=== PATIENT | male | born 1975 | race Caucasian/White ===

== ENCOUNTER 2021-05-15 17:55 | Outpatient (CLI) | payer MEDICAID ==
[~2021-05-15 17:55] MED LIST: CEPH500C3 PO
[2021-05-15 20:07] VITALS: BP 104/69
[2021-05-15 22:15] VITALS: BP 104/69
[2021-05-15] MEDS ORDERED: RisperiDONE 1 MG TABLET PO ONE (22:15)
[2021-05-15 23:11] LABS: GLUCOMETER DEV NAME(LOC) POC.BV
[2021-05-16] MEDS ORDERED: NICOTINE 14 MG/24 HOUR PATCH TD ONE (08:30)
[2021-05-16 08:35] VITALS: BP 103/64
[2021-05-16] MEDS ORDERED: RisperiDONE 1 MG TABLET PO SCH (09:00)
== END 2021-05-16 16:20 | disposition admitted as inpatient to this hospital (09) ==
LOC: CSU 17:55
PROVIDERS: ATTEND Psychiatry & Neurology Psychiatry
DX: F20.9 Schizophrenia, unspecified (principal)
CPT/HCPCS: 90792; Z7610

== ENCOUNTER 2021-05-16 10:38 | Inpatient (IN) | payer MEDICAID ==
[~2021-05-16] VITALS: Ht 170.2 cm; Wt 78.7 kg
[2021-05-16] MEDS ORDERED: ZOLPIDEM TARTRATE 10 MG TABLET PO PRN (16:45)
[2021-05-16] MEDS ORDERED: INFLUENZA VIRUS VACCINE QVS 2021-22 (6MO+)/PF 60 MCG/0.5 ML SYRINGE IM. ONE (17:00)
[2021-05-16] MEDS: HALOPERIDOL 5 MG TABLET PO PRN (17:38)
[2021-05-16] MEDS: LORazepam 2 MG TABLET PO PRN (17:38)
[2021-05-16 17:54] VITALS: BP 132/86
[2021-05-16 17:56] VITALS: BP 132/86
[2021-05-17 05:10] VITALS: BP 130/84
[2021-05-17] MEDS ORDERED: MAGNESIUM HYDROXIDE SUSPENSION 30 ML UDCUP PO PRN (06:00)
[2021-05-17] MEDS ORDERED: LOPERAMIDE HCL 2 MG CAPSULE PO PRN (06:00)
[2021-05-17] MEDS ORDERED: MAG HYDROX/AL HYDROX/SIMETH ES 30 ML SUSPENSION UDCUP PO PRN (06:00)
[2021-05-17] MEDS ORDERED: DOCUSATE SODIUM 100 MG CAPSULE PO PRN (06:00)
[2021-05-17] MEDS ORDERED: OMEPRAZOLE 20 MG CAPSULE PO PRN (06:00)
[2021-05-17] MEDS ORDERED: ACETAMINOPHEN 325 MG TABLET PO PRN (06:00)
[2021-05-17] MEDS ORDERED: BACITRACIN 28 GM OINTMENT TP PRN (06:00)
[2021-05-17] MEDS ORDERED: ALBUTEROL SULFATE HFA 90 MCG/PUFF 8 GM INHALER IH PRN (06:00)
[2021-05-17] MEDS ORDERED: CloNIDine HCL 0.1 MG TABLET PO PRN (06:00)
[2021-05-17] MEDS ORDERED: BENZOCAINE/MENTHOL LOZENGE PO PRN (06:00)
[2021-05-17] MEDS ORDERED: ONDANSETRON HCL 4 MG TABLET PO PRN (06:00)
[2021-05-17] MEDS ORDERED: IBUPROFEN 600 MG TABLET PO PRN (06:00)
[2021-05-17] MEDS ORDERED: PETROLATUM,WHITE 28 GM JELLY TP PRN (06:00)
[2021-05-17 07:42] LABS: BASOPHILS % (AUTO) 1.1 % (0.0-2.0); EOSINOPHILS % (AUTO) 4.1 % (1.0-6.0); HEMATOCRIT 39.1 % (41-53); HEMOGLOBIN 13.2 g/dL (13.5-17.5); LYMPHOCYTES # (AUTO) 2.9 K/uL (1.0-4.8); LYMPHOCYTES % (AUTO) 39.1 % (22.0-44.0); MEAN CORPUSCULAR HEMOGLOBIN 31.3 pg (26.0-34.0); MEAN CORPUSCULAR HGB CONC 33.8 G/dL (31.0-37.0); MEAN CORPUSCULAR VOLUME 93 fL (80-100); MONOCYTES # (AUTO) 0.5 K/uL (0.1-1.0); MONOCYTES % (AUTO) 6.5 % (2.0-9.0); NEUTROPHILS # (AUTO) 3.6 K/uL (1.8-7.7); NEUTROPHILS % (AUTO) 49.2 % (40.0-70.0); PLATELET COUNT (AUTO) 301 K/uL (150-450); RED BLOOD CELL COUNT(AUTO) 4.22 MIL/uL (4.50-5.90); RED CELL DISTRIBUTION WIDTH 12.3 % (11.5-14.5)
[2021-05-17 07:54] LABS: HEMOGLOBIN A1C 5.8 % (3.8-5.6)
[2021-05-17 08:00] LABS: ALANINE AMINOTRANSFERASE 20 U/L (12-78); ALBUMIN 3.7 g/dL (3.4-5.0); ALKALINE PHOSPHATASE 63 U/L (46-116); ANION GAP 9 mmol/L (8-16); ASPARTATE AMINOTRANSFERASE 14 U/L (15-37); BILIRUBIN,TOTAL 0.3 mg/dL (0.1-1.0); CALCIUM, TOTAL 8.9 mg/dL (8.8-10.5); CARBON DIOXIDE 26 mmol/L (22-29); CHLORIDE 105 mmol/L (98-107); CHOL/HDL RATIO 5.2 (4.2-7.3); CHOLESTEROL 199 mg/dL (131-200); CREATININE 0.94 mg/dL (0.60-1.30); GLOMERULAR FILTR. RATE CALC > 60 mL/min (>60); GLUCOSE,RANDOM 94 mg/dL (70-110); HDL CHOLESTEROL 38 mg/dL (40-60); LDL CHOL (CALC.) 146 mg/dL (0-130); POTASSIUM 3.9 mmol/L (3.5-5.1); SODIUM SERUM 140 mmol/L (136-145); TOTAL PROTEIN, SERUM 7.1 g/dL (6.4-8.2); TRIGLYCERIDES 73 mg/dL (15-150); UREA NITROGEN, BLOOD 9 mg/dL (7-18)
[2021-05-17 08:14] VITALS: BP 108/60
[2021-05-17 08:41] LABS: FREE T4 (FREE THYROXINE) 1.24 ng/dL (0.76-1.46); THYROID STIMULATING HORMONE 0.54 uIU/mL (0.36-3.74)
[2021-05-17] MEDS: LORazepam 2 MG TABLET PO PRN ×2 (11:15→16:51)
[2021-05-17] MEDS: HALOPERIDOL 5 MG TABLET PO PRN ×2 (11:15→16:51)
[2021-05-17] MEDS: DIVALPROEX SODIUM 500 MG DR TABLET PO SCH (16:51)
[2021-05-17 17:02] VITALS: BP 125/85
[2021-05-17] MEDS: OLANZapine 5 MG RAPDIS TABLET PO SCH (20:42)
[2021-05-18 05:20] VITALS: BP 128/64
[2021-05-18] MEDS: DIVALPROEX SODIUM 500 MG DR TABLET PO SCH ×2 (08:52→17:09)
[2021-05-18] MEDS: LORazepam 2 MG TABLET PO PRN (08:52)
[2021-05-18] MEDS: HALOPERIDOL 5 MG TABLET PO PRN (08:52)
[2021-05-18 09:09] VITALS: BP 130/74
[2021-05-18 16:24] VITALS: BP 109/85
[2021-05-18] MEDS: OLANZapine 5 MG RAPDIS TABLET PO SCH (20:26)
[2021-05-19 08:13] LABS: AMPHET/METH SCREEN,URINE NEGATIVE (NEGATIVE); BARBITURATE SCREEN, URINE NEGATIVE (NEGATIVE); BENZODIAZEPINES SCREEN,URINE NEGATIVE (NEGATIVE); CANNABINOID SCREEN,URINE POSITIVE (NEGATIVE); COCAINE SCREEN,URINE NEGATIVE (NEGATIVE); METHADONE SCREEN, URINE NEGATIVE (NEGATIVE); OPIATE SCREEN,URINE NEGATIVE (NEGATIVE)
[2021-05-19 08:15] LABS: PHENCYCLIDINE SCREEN,URINE NEGATIVE (NEGATIVE)
[2021-05-19 08:34] LABS: APPEARANCE,URINE CLEAR (CLEAR); BILIRUBIN,URINE NEGATIVE (NEGATIVE); GLUCOSE, URINE (UA) NEGATIVE (NEGATIVE); KETONES,URINE NEGATIVE (NEGATIVE); LEUKOCYTE ESTERASE ,URINE NEGATIVE (NEGATIVE); NITRATE,URINE NEGATIVE (NEGATIVE); OCCULT BLOOD,URINE NEGATIVE (NEGATIVE); PROTEIN,URINE NEGATIVE (NEGATIVE); SPECIFIC GRAVITIY, URINE 1.009 (1.003-1.030); UROBILINOGEN,URINE <=1.0 mg/dL (<=1.0)
[2021-05-19] MEDS: DIVALPROEX SODIUM 500 MG DR TABLET PO SCH ×2 (10:11→16:36)
[2021-05-19 11:52] VITALS: BP 118/80
[2021-05-19 16:18] VITALS: BP 125/84
[2021-05-19] MEDS: HALOPERIDOL 5 MG TABLET PO PRN (16:36)
[2021-05-19] MEDS: LORazepam 2 MG TABLET PO PRN (16:36)
[2021-05-19] MEDS: OLANZapine 5 MG RAPDIS TABLET PO SCH (20:15)
[2021-05-20 04:22] VITALS: BP 120/73
[2021-05-20 08:27] VITALS: BP 121/85
[2021-05-20] MEDS: DIVALPROEX SODIUM 500 MG DR TABLET PO SCH ×2 (09:31→16:39)
[2021-05-20] MEDS: LORazepam 2 MG TABLET PO PRN (14:55)
[2021-05-20 16:18] VITALS: BP 140/96
[2021-05-20] MEDS: OLANZapine 5 MG RAPDIS TABLET PO SCH (20:28)
[2021-05-21 06:15] VITALS: BP 126/79
[2021-05-21] MEDS: DIVALPROEX SODIUM 500 MG DR TABLET PO SCH (09:21)
[2021-05-21] MEDS: LORazepam 2 MG TABLET PO PRN (09:21)
[2021-05-21] MEDS ORDERED: DIVA-112 PO (11:47)
[2021-05-21] MEDS ORDERED: OLAN7.5T22 PO (11:52)
== END 2021-05-21 13:00 | disposition home or self-care (01) | DRG 750 ==
LOC: B3A 16:43
PROVIDERS: ADMIT Psychiatry & Neurology Psychiatry; ATTEND Psychiatry & Neurology Psychiatry
DX: F25.9 Schizoaffective disorder, unspecified (principal); F10.10 Alcohol abuse, uncomplicated; F41.9 Anxiety disorder, unspecified; Y90.9 Presence of alcohol in blood, level not specified; K59.00 Constipation, unspecified; F12.90 Cannabis use, unspecified, uncomplicated
CPT/HCPCS: 80053; 80061; 80164; 80307; 81003; 83036; 84439; 84443; 85025; 90686